=== PATIENT | female | born 1970 | race Caucasian/White ===

== ENCOUNTER 2020-06-06 08:37 | Outpatient (CLI) | payer OTHER, SELFPAY ==
--- NOTE | ~2020-06-06 | MM_ITS ---
EXAMINATION: MM screening wesley BI w keyla HISTORY: Screening mammogram TECHNIQUE: Craniocaudal and mediolateral oblique 3-D tomosynthesis images were obtained and synthetic 2-D images were generated. CAD analysis was submitted and interpreted. COMPARISON: 04/27/2019, 03/24/2018, 03/11/2017 bilateral digital screening mammogram examinations BREAST PARENCHYMAL COMPOSITION: There are scattered areas of fibroglandular density. FINDINGS: Occasional benign calcifications. There is no evidence of suspicious mass, calcification, o r architectural distortion to suggest malignancy in either breast. There has been no suspicious inter kiera change. IMPRESSION: 1. No mammographic evidence of malignancy. 2. Recommend routine screening mammography in one year. BI-RADS Category 2: Benign finding(s). Reviewed, dictated and finalized at location B. 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
== END 2020-06-06 08:38 | disposition home or self-care (01) ==
LOC: ANHIMG 08:40
PROVIDERS: PCP Registered Nurse; Visit Provider Registered Nurse
DX: Z12.31 Encounter for screening mammogram for malignant neoplasm of breast (principal)
CPT/HCPCS: 77063; 77067

== ENCOUNTER 2023-01-14 06:57 | Outpatient (CLI) | payer OTHER, SELFPAY ==
--- NOTE | ~2023-01-14 | MM_ITS ---
EXAMINATION: MM screening wesley BI w keyla HISTORY: Screening mammogram TECHNIQUE: Craniocaudal and mediolateral oblique 3-D tomosynthesis images were obtained and synthetic 2-D images were generated. CAD analysis was submitted and interpreted. COMPARISON: 06/06/2020, 04/27/2019, 03/24/2018 bilateral screening mammogram examinations BREAST PARENCHYMAL COMPOSITION: There are scattered areas of fibroglandular density. FINDINGS: Occasional benign calcifications. There is no evidence of suspicious mass, calcification, o r architectural distortion to suggest malignancy in either breast. There has been no suspicious inter kiera change. IMPRESSION: 1. No mammographic evidence of malignancy. 2. Recommend routine screening mammography in one year. BI-RADS Category 2: Benign finding(s). Reviewed, dictated and finalized at location A.
== END 2023-01-14 06:58 | disposition home or self-care (01) ==
LOC: ANHIMG 06:59
PROVIDERS: PCP Nurse Practitioner Family; Visit Provider Nurse Practitioner Family
DX: Z12.31 Encounter for screening mammogram for malignant neoplasm of breast (principal)
CPT/HCPCS: 77063; 77067

== ENCOUNTER 2023-02-05 09:58 | Emergency (ER) | payer OTHER, SELFPAY ==
[2023-02-05 10:10] VITALS: BP 140/83; PULSE 87; RESP 16; TEMP 36.4; O2SAT 99
--- NOTE | 2023-02-05 10:10 | ED.SKABFB ---
HPI - Skin/Abscess/Foreign Bdy General Chief complaint: Skin/Abscess/Foreign Body Stated complaint: irritation right arm Time Seen by Provider: 02/05/23 09:58 Source: patient Mode of arrival: ambulatory Limitations: no limitations History of Present Illness HPI narrative: Patient is a 52-year-old female who presents with right upper arm skin redness and swelling. Does report mild itching. States this started Monday. 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 Patient has been using Vaseline to prevent itching. Denies any numbness, tingling, weakness to arm. Denies any fever, chills, nausea, vomiting, diarrhea. Related Data Home Medications Medication Instructions Recorded Confirmed cyclobenzaprine 10 mg tablet 10 mg PO TID 07/04/19 lorcaserin 10 mg tablet (Belviq) 10 mg PO BID 07/04/19 cetirizine 5 mg-pseudoephedrine ER tablet PO 02/05/23 120 mg tablet,extended release,12hr (Zyrtec-D) Allergies Allergy/AdvReac Type Severity Reaction Status Date / Time No Known Allergies Allergy Unverified 02/05/23 10:04 Review of Systems Review of Systems: All systems reviewed & are unremarkable except as noted in HPI and below Constitutional: Constitutional: Denies body ache(s), Denies chills, Denies fatigue, Denies fever(s), Denies headache(s), Denies malaise and Denies weakness Eyes: Eyes: Denies blurry vision, Denies irritation and Denies loss of vision ENT: Denies otalgia, Denies headache(s), Denies nasal discharge, Denies sinus pain and Denies sore throat Cardiovascular: Cardiovascular: Denies chest pain, Denies irregular heart rhythm and Denies dyspnea Respiratory: Respiratory: Denies dyspnea Gastrointestinal: Gastrointestinal: Denies abdominal pain, Denies melena, Denies hematochezia, Denies diarrhea, Denies nausea and Denies vomiting Musculoskeletal: Musculoskeletal: Denies back pain, Denies myalgias and Denies arthralgias Integumentary/Breasts: Skin/Breast: Denies pruritus, Denies rash, Reports skin pain and Reports skin swelling Neurologic: Denies headache(s), Denies loss of vision and Denies weakness Psychiatric: Psychiatric: Reports no additional psychiatric complaints Endocrine: Endocrine: Denies fatigue PMFSH Past Medical History Medical History (Updated 02/05/23 @ 10:22 by Hemalatha Lennon, ASSOCIATE MEDIA DIRECTOR) BMI 38.0-38.9,adult Colon cancer screening Encounter for preventive health examination GERD (gastroesophageal reflux disease) Hyperlipidemia Hypothyroidism (acquired) Neck fullness On assisted drug therapy Recurrent cold sores Vitamin D deficiency Family History Family History (Updated 02/19/16 @ 23:19 by DOCTOR UNKNOWN) Mother Hypertension Family history of diabetes mellitus in first degree relative Acute myocardial infarction Social History Social History Smoking status: Never smoker Alcohol intake: current Comments At time of signature, agree with nursing past medical, surgical, social and family history. There is no relevant family history pertinent to the presenting complaint. Exam Const: General: cooperative, healthy appearing, comfortable, no acute distress and well nourished Nutritional Appearance: well nourished Orientation/consciousness: patient oriented x3 Limitations: no limitations HENMT: Head: normal to inspection, normocephalic and atraumatic Ears: hearing grossly normal bilaterally and external ears normal Face/Nose/Sinus: Normal external nose present, normal facial exam and face symmetric Face and sinus: normal facial exam and face symmetric Mouth: Yes lip normal Eyes: General: appearance normal, both eyes and all related structures Alignment and Position: alignment normal and position normal Periorbital: periorbital findings normal Eyelids: eyelids normal Pupils: Equal, round and reactive pupils present EOM: EOMs intact bilaterally Neck: Neck: normal visual inspection, full ROM and supple Chest: Chest palpation & insp
== END 2023-02-05 10:25 | disposition home or self-care (01) ==
PROVIDERS: Emergency Provider Nurse Practitioner Family; PCP Nurse Practitioner Family
DX: L03.113 Cellulitis of right upper limb (principal); K21.9 Gastro-esophageal reflux disease without esophagitis; E78.5 Hyperlipidemia, unspecified; E03.9 Hypothyroidism, unspecified
CPT/HCPCS: 99213; G0463

== ENCOUNTER 2024-12-21 09:05 | Outpatient (CLI) | payer BC, SELFPAY ==
--- NOTE | ~2024-12-21 | MM_ITS ---
EXAMINATION: MM screening wesley BI w keyla HISTORY: Screening TECHNIQUE: Craniocaudal and mediolateral oblique 3-D tomosynthesis images were obtained and synthetic 2-D images were generated. CAD analysis was submitted and interpreted. COMPARISON: Comparison to multiple prior studies sequentially, with oldest reviewed study dated 12/2015. BREAST PARENCHYMAL COMPOSITION: Not dense: There are scattered areas of fibroglandular density. FINDINGS: There is no evidence of suspicious mass, calcification, or architectural distortion to sugg est malignancy in either breast. There has been no suspicious interval change. IMPRESSION: 1. No mammographic evidence of malignancy. 2. Recommend routine screening mammography in one year. BI-RADS Category 1: Negative Reviewed, dictated and finalized at location A.
--- OUTSIDE RECORDS SUMMARY | 2024-12-21 09:07 | XMS_ITS | Clinical Summary ---
Author Organization [facility] [address] [facility] Address [address] [place] [address] Care Team Providers Care Silver Miner Name Role Phone Shobha Hunt NP Primary Care Provider [phone] Allergies No known active allergies Medications citalopram (CeleXA) 20 mg tabletIndications:A nxiety Take 1 tablet (20 mg total) by mouth daily 90 tablet 1 5 Active levothyroxine (SYNTHROID) 50 mcg tabletIndications:A cquired hypothyroidism Take 1 tablet (50 mcg total) by mouth daily 90 tablet 1 5 Active omeprazole (PriLOSEC) 40 mg capsuleIndications: Abdominal pain Take 1 capsule (40 mg total) by mouth daily 90 capsule 1 5 Active simvastatin (ZOCOR) 40 mg tabletIndications:M ixed hyperlipidemia Take 1 tablet (40 mg total) by mouth daily 90 tablet 1 5 Active valACYclovir (VALTREX) 500 mg tablet Take 1 tablet (500 mg total) by mouth 2 (two) times a day 60 tablet 5 Active ZyrTEC-D 5-120 mg per 12 hr tabletIndications:S easonal allergies Take 1 tablet by mouth 2 (two) times a day 48 tablet 3 5 Active Active Problems Problem Noted Date Diagnosed Date Obesity, morbid, BMI 40.0-49.9 05/26/2023 Assessment & Plan (08/05/2024 2:41 PM AUTOGRAPHER): Discussed the patient's BMI. The BMI is above average. BMI management plan is completed. BMI Follow-up includes: nutrition counseling, exercise counseling and education provided. Assessment & Plan (01/24/2024 1:53 PM CDT): Discussed the patient's BMI. The BMI is above average. BMI management plan is completed. BMI Follow-up includes: nutrition counseling, exercise counseling and education provided. Discussed the patient's BMI. The BMI is above average. BMI management plan is completed. BMI Follow-up includes: nutrition counseling, exercise counseling and education provided. Assessment & Plan (05/26/2023 3:23 PM CDT): Discussed the patient's BMI. The BMI is above average. BMI management plan is completed. BMI Follow-up includes: nutrition counseling, exercise counseling and education provided. Cervical cancer screening 05/26/2023 Abdominal pain 01/09/2023 Obesity (BMI 30-39.9) 11/23/2022 Seasonal allergies 11/23/2022 Non-seasonal allergic rhinitis due to pollen Assessment & Plan (02/14/2022 8:06 PM CDT): Stable, continue meds the same at this time Screening for diabetes mellitus 01/17/2022 Hyperlipidemia 01/17/2022 Assessment & Plan (01/17/2022 6:54 PM CDT): Fasting labs entered, will notify patient of results as available Advised patient to follow a heart healthy diet, low in red meat and pork, and increase veggies. Advised exercise 4x/week for 30min each session. Acquired hypothyroidism 04/15/2020 Assessment & Plan (02/14/2022 8:05 PM CDT): Stable, continue meds the same at this time Assessment & Plan (01/17/2022 6:54 PM CDT): Continue synthroid same dosing at this time Will evaluate further with labs, will notify pt of results as available Anxiety 04/15/2020 Depression 04/15/2020 Assessment & Plan (01/17/2022 6:55 PM CDT): Stable, continue meds same at this time. Advised not stopping it abruptly. She declines counseling at this time. 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 BMI follow-up includes: Nutrition Counseling and education provided Assessment & Plan (03/14/2022 7:06 PM CDT): Congratulated on weight loss, encouraged her to continue with endeavors. Will increase topamax to 50mg bid. Reminded her not to stop this abruptly and to call if finding she wants to go off of it. Encouraged increased exercise and cutting back on portion sizes/calories. Assessment & Plan (02/14/2022 8:06 PM CDT): Discussed meciation options, including saxenda. Will continue to attempt saxenda coverage, however as this is anticipated to take a while will start topamax off label for appetie suppression. We discussed that it could make soda taste metallic. She was also advised of potential serotonin syndrome with taking it. She reports understanding and desires to proceed. Will initiate 25mg bid with anticipation at increasing at 30d pending improvement in weight. Encouraged heart healthy diet and exercise 4x/week for 30min each session in addition to topamax. Assessment & Plan (01/17/2022 6:55 PM CDT): Discussed the patient's BMI. The BMI is above average. BMI management plan is completed. BMI Follow-up includes: nutrition counseling, exercise counseling and education provided. Letter written for karthikeyan, given to patient. Discussed starting lose dose and increasing week to week pending response. Immunizations Immunization Administration Dates Next Due Influenza, Unspecified 08/05/2024(Deferr ed: Patient Refused),07/24/2023(Deferred: Patient Refused),07/24/2023(Deferred: Patient Refused),05/26/2023(Deferred: Patient Refused),01/09/2023(Deferred: Patient Refused),11/23/2022(Deferred: Patient Refused),07/24/2022(Deferred: Patient Refused),08/24/2021(Deferred: Patient Refused),08/24/2021(Deferred: Patient Refused) Tdap 04/15/2020 Medical History Medical History Date Comments GERD (gastroesophageal reflux disease) Hypothyroidism Urinary tract infection Depression Hyperlipidemia Motion sickness Family History Medical History Relation Name Comments Penile cancer Father Diabetes Mother Breast cancer Sister 1 htn Sister 2 Relation Name Status Comments Father Mother Sister 1 Sister 2 Alive Social History Tobacco Use Types Packs/Day Years Used Date Smoking Tobacco: Never Smokeless Tobacco: Never AUDIT-C Answer Date Recorded Q1: How often do you have a drink containing alcohol? Monthly or less 03/08/2023 Q2: How many drinks containi ng alcohol do you have on a typical day when you are drinking? Patient does not drink Q3: How often do you have si x or more drinks on one occasion? Never 03/08/2023 PHQ-2 Answer Date Recorded PHQ-2 Total Score (If total score is 3 or more points, staff should administer the PHQ-9) 0 08/05/2024 Personal Safety Answer Date Recorded Have you ever been in or are you currently in a harmful physical or emotional relationship or is someone making you feel afraid or unsafe? Denies 03/08/2023 Comments Unknown Sex and Gender Information Value Date Recorded Sex Assigned at Not on file Legal Sex Female 12:04 AM AUTOGRAPHER Gender Identity Not on file Sexual Orientation Not on file Obstetrics History Last Filed Vital Signs Vital Sign Reading Time Taken Comments Blood Pressure 124/70 08/05/2024 2:38 PM AUTOGRAPHER Pulse 98 08/05/2024 2:38 PM AUTOGRAPHER Temperature 36.1 C (97 F) 08/05/2024 2:38 PM AUTOGRAPHER Respiratory Rate 25 03/08/2023 8:45 AM CDT Oxygen Saturation 97% 08/05/2024 2:38 PM AUTOGRAPHER Inhaled Oxygen Concentration - - Weight 106.1 kg (234 lb) 08/05/2024 2:38 PM AUTOGRAPHER Height 160 cm (5' 3) 08/05/2024 2:38 PM AUTOGRAPHER Body Mass Index 41.45 08/05/2024 2:38 PM AUTOGRAPHER Plan of Treatment Health Maintenance Due Date Last Done Comments Hepatitis C Screening 1970 Hepatitis B Screening 1989 Zoster Vaccine (1 of 2) 2021 Breast Cancer Screening-Mammogram 01/15/2024 01/14/2023 Covid-19 Vaccine ( season) 2024 01/23/2021, 01/01/2021 Cervical Cancer Screening 05/26/2024 05/26/2023, 03/2021 Influenza Vaccine (Season Ended) 2025 Depression Screening 08/05/2025 08/05/2024, 01/24/2024, 05/26/2023, Additional history exists Regular Well Visit/Exam 18-64 08/05/2025 08/05/2024, 05/26/2023, 11/23/2022 DTaP/Tdap/Td Vaccine (2 - Td or Tdap) 04/15/2030 04/15/2020 Colon Cancer Screening-Colonoscopy 03/08/2033 03/08/2023 Pneumococcal vaccine <65 Aged Out No longer eligible based on patient's age to complete this topic Procedures Procedure Name Priority Date/Time Associated Diagnosis Comments PAP AND HPV, REFLEX TO HPV GENOTYPES Routine 05/26/2023 3:56 PM CDT Cervical cancer screening COLONOSCOPY 03/08/2023 7:59 AM CDT SCREENING MAMMOGRAM BILATERAL W PREET Schedule Routine, Read Routine (OP Routine) 01/14/2023 Encounter for screening mammogram for malignant neoplasm of breast from Last 3 Months or Most Recently Relevant to Health Maintenance Results * Pap and HPV, reflex to HPV Genotypes (05/26/2023 3:56 PM CDT) CLINICAL INFORMATION: [facility] Comment:Postmenopausal LMP [facility] Comment:COURTNEY Previous Pap [facility] Comment:PREV NEG Prev. Bx [facility] Comment:None given SOURCE: [facility] Comment:Cervix, Endocervix Pap, specimen adequacy [facility] Comment: Satisfactory for evaluation. Endocervical/transformation zone component present. HPV interp [facility] Comment: Cytology Results: Negative for intraepithelial lesion or malignancy. [employer] [facility] Comment: MMD, CT(ASCP) CT Screening Location: [place] [address] Comment [facility] Comment: EXPLANATORY NOTE: The Pap is a screening test for cervical cancer. It is not a diagnostic test and is subject to false negative and false positive results. It is most reliable when a satisfactory sample, regularly obtained, is submitted with relevant clinical findings and history, and when the Pap result is evaluated along with historic and current clinical information. EFFECTIVE JUNE 19, 2023, the version of ThinPrep you ordered, commonly known as manual ThinPrep, will be DISCONTINUED. An alternative form of ThinPrep, called ThinPrep Imaging, will continue to be available. For a copy of the client communication (TIS Client Letter) showing TIS test codes, see [email or web address], and navigate to Well[facility]>Physician Materials>TIS Client Letter. You can also call for test code assistance. Human papillomavirus DNA, High Risk E6/E7 Not Detected NOT DETECTED [facility] [place] Comment: Not Detected High Risk HPV types (16,18,31,33,35,39,45,51,52, 56,58,59,66,68) were not detected. Other HPV types which cause anogenital lesions may be present. The significance of the other types of HPV in malignant processes has not been established. Methodology: Real Time PCR Thin prep 05/26/2023 3:56 PM CDT 05/27/2023 5:15 AM CDT us Shobha Hunt OPTOELECTRONIC TECHNICIAN LAB CYTOLOGY ORDERABLES Final Result [facility] [address] [place] [address] [facility] [address] [place] [address] * COLONOSCOPY (03/08/2023 7:59 AM CDT) Anatomical Region Laterality Modality Other Narrative Procedure Note Woodrow Gregory MD - 03/08/2023 7:59 AM CDT [facility] GI ENDOSCOPY Patient Name: Patito Allison Procedure Date: 03/08/2023 7:59 AM Date of : 1970 Admit Type: Outpatient Age: 52 Gender: Female Attending MD: Woodrow Gregory M.D. Room: [facility] ENDOSCOPY ROOM 06 Note Status: Finalized Procedure: Colonoscopy Indications: Screening for colorectal malignant neoplasm Referring MD: Providers: Woodrow Gregory M.D. Medicines: Monitored Anesthesia Care Complications: No immediate complications. Estimated Blood Loss: Estimated blood loss: none. Procedure: The benefits, risks and alternatives of theprocedure and sedation were discussed and informed consentwas obtained. All questions were answered. Please referto the signed informed consent document in the medical record. The scope was passed under direct vision.The [id number]-[id number] colonoscope was introduced through theanus and advanced to the cecum, identified byappendiceal orifice and ileocecal valve. The colonoscopy was performed without difficulty. The patient tolerated the procedure well. The quality of the bowel preparation was good. Scope withdrawal time was 9 minutes. Prep was administered in a split dose. Findings: The perianal and digital rectal examinations were normal. Two polyps were found in the sigmoid colon. The polyps werediminutive in size. These polyps were removed with a cold biopsy forceps.Resection and retrieval were complete. Non-bleeding internal hemorrhoids were found during retroflexion. The hemorrhoids were small. The exam was otherwise without abnormality. Impression: - Two diminutive polyps in the sigmoid colon,removed with a cold biopsy forceps. Resected andretrieved. - Non-bleeding internal hemorrhoids. - The examination was otherwise normal. Recommendation: - Patient has a contact number available for emergencies. The signs and symptoms of potential delayed complications were discussed with thepatient. Return to normal activities tomorrow. Written discharge instructions were provided to thepatient. - High fiber diet. - Continue present medications. - Await pathology results. - Repeat colonoscopy in 5 years for surveillance if polyps are adenomatous, otherwise 10 years. Woodrow Gregory M.D. Woodrow Gregory M.D. 03/08/2023 8:18:52 AM . Number of Addenda: 0 Note Initiated On: 03/08/2023 7:59 AM Recognized by the [employer] [place] [employer] for promoting quality in endoscopy us Woodrow Gregory MD ENDOSCOPY PROCEDURES Final Resul t * Screening Mammogram Bilateral W Preet (01/14/2023) Anatomical Region Laterality Modality Breast Bilateral Mammography Shobha Hunt NP IMG MAMMO PROCEDURES Final Re sult from Last 3 Months or Most Recently Relevant to Health Maintenance Insurance [facility] H[facility]/PPO Address: [address] [address] [place] [address] [employer] [facility] HMO/PPO Address: [facility] [address] [id number] Care Teams Silver Miner Relationship Specialty Start Date End Date Shobha Hunt NP [facility] [address] PCP - General Internal Medicine 11/24/22
--- OUTSIDE RECORDS SUMMARY | 2024-12-21 09:07 | XMS_ITS | Referral Summary ---
Author Organization [facility] [place] [address] [facility] Address [address] [place] [address] Care Team Providers Care Helium Arc Welder Name Role Phone Shobha Hunt NP Primary Care Provider [phone] Allergies No known active allergies Medications citalopram [...] 05/26/2023 Assessment & Plan (08/05/2024 2:41 PM FLOOR PRESS OPERATOR): Discussed the patient's BMI. The BMI is [...] Refused),08/24/2021(Deferred: Patient Refused),08/24/2021(Deferred: Patient Refused) Tdap 04/15/2020 Social History Tobacco Use Types Packs/Day Years [...] on file Legal Sex Female 12:04 AM FLOOR PRESS OPERATOR Gender Identity Not on file Sexual Orientation Not on file Last Filed Vital Signs Vital Sign Reading Time Taken Comments Blood Pressure 124/70 08/05/2024 2:38 PM FLOOR PRESS OPERATOR Pulse 98 08/05/2024 2:38 PM FLOOR PRESS OPERATOR Temperature 36.1 C (97 F) 08/05/2024 2:38 PM FLOOR PRESS OPERATOR Respiratory Rate 25 03/08/2023 8:45 AM CDT Oxygen Saturation 97% 08/05/2024 2:38 PM FLOOR PRESS OPERATOR Inhaled Oxygen Concentration - - Weight 106.1 kg (234 lb) 08/05/2024 2:38 PM FLOOR PRESS OPERATOR Height 160 cm (5' 3) 08/05/2024 2:38 PM FLOOR PRESS OPERATOR Body Mass Index 41.45 08/05/2024 2:38 PM FLOOR PRESS OPERATOR Plan of Treatment Not on file Procedures Procedure Name Priority Date/Time Associated Diagnosis [...] Genotypes (05/26/2023 3:56 PM CDT) CLINICAL INFORMATION: [facility] Comment:Postmenopausal LMP [facility] Comment:COURTNEY Previous Pap [facility] Comment:PREV NEG Prev. Bx [facility] Comment:None given SOURCE: [facility] Comment:Cervix, Endocervix Pap, specimen adequacy [facility] Comment: Satisfactory for evaluation. Endocervical/transformation zone component present. HPV interp [facility] Comment: Cytology Results: Negative for intraepithelial lesion or malignancy. Director Process Improvement [facility] Comment: MMD, CT(ASCP) CT Screening Location: [address], [place] [address] Comment [facility] Comment: EXPLANATORY NOTE: The Pap is [...] Client Letter) showing TIS test codes, see www.[employer]/Resources, and navigate to Well-Woman>Physician Materials>TIS Client Letter. You can also call for test code assistance. Human papillomavirus DNA, High Risk E6/E7 Not Detected NOT DETECTED [employer] [facility] Comment: Not Detected High Risk HPV types (16,18,31,33,35,39,45,51,52, 56,58,59,66,68) were not detected. Other HPV types which cause anogenital lesions may be present. The significance of the other types of HPV in malignant processes has not been established. Methodology: Real Time PCR Thin prep 05/26/2023 3:56 PM CDT 05/27/2023 5:15 AM CDT Shobha Hunt NP LAB CYTOLOGY ORDERABLES Final Result [facility] [address] [place] [address] [employer] [address] [place] [address] * COLONOSCOPY (03/08/2023 7:59 AM CDT) Anatomical Region Laterality Modality Other Narrative Procedure Note Woodrow Gregory MD - 03/08/2023 7:59 AM CDT [facility] GI ENDOSCOPY Patient Name: Patito Allison Procedure Date: 03/08/2023 7:59 AM Date of : 1970 Admit Type: Outpatient Age: 52 Gender: Female Attending MD: Woodrow Gregory M.D. Room: [facility] ENDOSCOPY ROOM 06 Note Status: Finalized [...] The scope was passed under direct vision.The [id number]-[id number] colonoscope was introduced through theanus and advanced [...] On: 03/08/2023 7:59 AM Recognized by the [place] [employer] for promoting quality in endoscopy Woodrow Gregory MD ENDOSCOPY PROCEDURES Final Resul t * Screening Mammogram Bilateral W Preet (01/14/2023) Anatomical Region Laterality Modality Breast Bilateral Mammography Shobha Hunt MOVEMENT THERAPIST IMG MAMMO PROCEDURES Final Re sult from Last 3 Months or Most Recently Relevant to Health Maintenance Insurance CHOICE PLUS ANTHEM ACCESS CHOICE [facility] CHOICE PLUS Care Teams Helium Arc Welder Relationship Specialty Start Date End Date Shobha Hunt NP [address] [place] [address] PCP - General Internal Medicine 11/24/22
== END 2024-12-21 09:06 | disposition home or self-care (01) ==
PROVIDERS: PCP Nurse Practitioner Family; Visit Provider Nurse Practitioner Family
DX: Z12.31 Encounter for screening mammogram for malignant neoplasm of breast (principal)
CPT/HCPCS: 77063; 77067

== ENCOUNTER 2025-04-30 02:32 | Day surgery (SDC) | payer OTHER, SELFPAY ==
[2025-04-24 13:16] VITALS: BMI 41.5
--- NOTE | 2025-04-24 13:17 | SUR.PREOP ---
[facility] has started construction of its new state of the art ER which will open Spring 2026. With this, we anticipate parking may be a challenge for some our surgical patients and families. Parking spaces are limited but are available for all Surgical, obstetrics, and ER patients sharing this lot. If you arrive and find you are having a hard time finding a parking space, please note that we understand the challenges, please drive around the hospital and park near Hospital Entrance 1. When you enter this entrance, you can ask a volunteer to direct or take you back to the surgical waiting area to check in. We appreciate everyone?s understanding of these expected challenges while we build for your future. Report to the Outpatient Waiting Room, entrance under the green pavilion located off [address], at time 0830 on date 04/30/25. Planned Procedure Time: 1030.? Time changes happen often and if your time is changed the preop area will call you the afternoon before. - You and your visitor will be asked to self-screen and do not enter if you have any COVID symptoms. Please call surgeon if you need to reschedule. - A mask is optional within the hospital at this time. No food or drink from midnight until time of surgery and no smoking, or chewing tobacco (or any form of nicotine). No chewing gum, candy or mints. Take only the following medications with a SIP of water on the morning of surgery: acyclovir, citalopram, cyclobenzaprine, levothyroxine. DO NOT STOP ANY OF YOUR OTHER PRESCRIPTION MEDICATIONS PRIOR TO SURGERY EXCEPT THE FOLLOWING Hold all vitamins and supplements for 3 days per anesthesiologist. Medications to discontinue per physician none Date to take last dose 04/26/25 Please no make-up, nail vincentian, hairspray, perfume, deodorant, or body powder the day of surgery.? No jewelry (including any body piercings) or valuables the day of surgery, leave them at home.? Please take a shower or bath the night before, or the morning of, surgery with an antibacterial soap.? Wear comfortable, loose fitting clothing.? Children are encouraged to wear pajamas. - Jewelry must be removed prior to entering the operating room.? Rings and piercings that are not removed may be cut off. - The hospital will not accept responsibility for valuables.? - Please leave all valuables, including medications, at home the day of surgery. If you are going home after surgery, a licensed pizza delivery driver must drive you home.? - NO public transportation without another adult if you receive anesthesia. - We recommend that an adult stay with you for 24 hours following discharge. - We also recommend that you do not drive, make important decision, drink alcoholic beverages, or take any drugs that were not prescribed by your health care provider for at least 24 hours after your discharge time. Follow any additional instructions given to you from your surgeon. Telephone instructions given to __Dona and asked if any additional questions and then verbalized understanding. Patient advised to call surgeon office or pre surgery nurse liaison [phone] if any additional questions.
--- OUTSIDE RECORDS SUMMARY | 2025-04-30 02:35 | XMS_ITS | Clinical Summary ---
Author Organization [facility] [place] [address] [facility] Address [address] [place] [address] Care Team Providers Care Overedge Machine Operator Name Role Phone Shobha Hunt NP Primary Care Provider [phone] Allergies No known active allergies Medications ZyrTEC-D 5-120 mg per 12 hr tabletIndications:S easonal allergies Take 1 tablet by mouth 2 (two) times a day 48 tablet 3 5 Active valACYclovir (VALTREX) 500 mg tablet Take 1 tablet (500 mg total) by mouth 2 (two) times a day 60 tablet 5 5 Active simvastatin (ZOCOR) 40 mg tabletIndications:M ixed hyperlipidemia Take 1 tablet (40 mg total) by mouth daily 90 tablet 1 5 Active omeprazole (PriLOSEC) 40 mg capsuleIndications: Abdominal pain Take 1 capsule (40 mg total) by mouth daily 90 capsule 1 5 Active levothyroxine (SYNTHROID) 50 mcg tabletIndications:A cquired hypothyroidism Take 1 tablet (50 mcg total) by mouth daily 90 tablet 1 5 Active citalopram (CeleXA) 20 mg tabletIndications:A nxiety Take 1 tablet (20 mg total) by mouth daily 90 tablet 1 5 Active Active Problems Problem Noted Date Diagnosed Date BMI 40.0-44.9, adult 05/26/2023 Assessment & Plan (08/05/2024 2:41 PM COAL CARRIER): Discussed the patient's BMI. The BMI is [...] session. Acquired hypothyroidism 04/15/2020 Assessment & Plan (01/28/2025 3:50 PM CDT): Discussed the patient's BMI. The BMI is above average. BMI management plan is completed. BMI Follow-up includes: nutrition counseling, exercise counseling and education provided. Assessment & Plan (02/14/2022 8:05 PM CDT): [...] and increasing week to week pending response. Encounters Date Type Department Care Team Description 01/28/2025 4:00 PM CDT Office Visit [facility] Family [facility] [address] [address] Shobha Hunt NP Mixed hyperlipidemia (Primary Dx); BMI 40.0-44.9, adult (HCC); Obesity, morbid, BMI 40.0-49.9 (HCC); Seasonal allergies; Abdominal pain; Acquired hypothyroidism; Anxiety; Screening for diabetes mellitus from Last 3 Months Immunizations Immunization Administration Dates Next Due Influenza, Unspecified 08/05/2024(Deferr ed: Patient Refused),07/24/2024(Deferred: Patient Refused),07/24/2023(Deferred: Patient Refused),07/24/2023(Deferred: Patient Refused),07/24/2023(Deferred: Patient Refused),05/26/2023(Deferred: Patient [...] often do you have a drink containing alc ohol? Monthly or less 01/28/2025 Q2: How many drinks containi ng alcohol do you have on a typical day when you are drinking? 1 or 2 01/28/2025 Q3: How often do you have si x or more drinks on one occasion? Never 01/28/2025 PHQ-2 Answer Date Recorded PHQ-2 Total Score [...] on file Legal Sex Female 12:04 AM COAL CARRIER Gender Identity Not on file Sexual Orientation Not on file Obstetrics History Last Filed Vital Signs Vital Sign Reading Time Taken Comments Blood Pressure 122/80 01/28/2025 3:46 PM CDT Pulse 94 01/28/2025 3:46 PM CDT Temperature 36.7 C (98 F) 01/28/2025 3:46 PM CDT Respiratory Rate 25 03/08/2023 8:45 AM CDT Oxygen Saturation 96% 01/28/2025 3:46 PM CDT Inhaled Oxygen Concentration - - Weight 107.5 kg (237 lb) 01/28/2025 3:46 PM CDT Height 160 cm (5' 3) 01/28/2025 3:46 PM CDT Body Mass Index 41.98 01/28/2025 3:46 PM CDT Plan of Treatment Health Maintenance Due Date Last Done Comments Hepatitis C Screening 1970 Hepatitis B Screening 1989 Zoster Vaccine (1 of 2) 2021 Cervical Cancer Screening 05/26/2024 05/26/2023, 03/2021 Covid-19 Vaccine ( season) 2025 01/23/2021, 01/01/2021 Influenza Vaccine (#1) 2025 Depression Screening 08/05/2025 08/05/2024, 01/24/2024, 05/26/2023, Additional history exists Regular Well Visit/Exam 18-64 08/05/2025 08/05/2024, 05/26/2023, 11/23/2022 Breast Cancer Screening-Mammogram 12/24/2025 12/24/2024, 01/14/2023 DTaP/Tdap/Td Vaccine (2 - Td or Tdap) 04/15/2030 04/15/2020 Colon Cancer Screening-Colonoscopy 03/08/2033 03/08/2023 Pneumococcal vaccine <65 Aged Out No longer eligible based on patient's age to complete this topic Procedures Procedure Name Priority Date/Time Associated Diagnosis Comments SCREENING MAMMOGRAM BILATERAL W PREET Schedule Routine, Read Routine (OP Routine) 12/24/2024 10:54 AM CDT Breast cancer screening by mammogram PAP AND HPV, REFLEX TO HPV GENOTYPES Routine 05/26/2023 3:56 PM CDT Cervical cancer screening COLONOSCOPY 03/08/2023 7:59 AM CDT from Last 3 Months or Most Recently Relevant to Health Maintenance Results * Screening Mammogram Bilateral W Preet (12/24/2024 10:54 AM CDT) Anatomical Region Laterality Modality Breast Bilateral Mammography Shobha Hunt BUILDING OPERATOR IMG MAMMO PROCEDURES Final Re sult * Pap and HPV, reflex to HPV Genotypes (05/26/2023 3:56 PM CDT) CLINICAL INFORMATION: [facility] Comment:Postmenopausal LMP [facility] Comment:COURTNEY Previous Pap [facility] Comment:PREV NEG Prev. Bx [facility] Comment:None given SOURCE: [facility] Comment:Cervix, Endocervix Pap, specimen adequacy [facility] Comment: Satisfactory for evaluation. Endocervical/transformation zone component present. HPV interp [facility] Comment: Cytology Results: Negative for intraepithelial lesion or malignancy. 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 You can also call for test code assistance. Human papillomavirus DNA, High Risk E6/E7 Not Detected NOT DETECTED [employer] [facility] [place] Comment: Not Detected High Risk HPV types (16,18,31,33,35,39,45,51,52, 56,58,59,66,68) were not detected. Other HPV types which cause anogenital lesions may be present. The significance of the other types of HPV in malignant processes has not been established. Methodology: Real Time PCR Thin prep 05/26/2023 3:56 PM CDT 05/27/2023 5:15 AM CDT Shobha Hunt NP LAB CYTOLOGY ORDERABLES Final Result [facility] [address] [place] [address] [employer]/[place] [address] [address] [place] [address] * COLONOSCOPY (03/08/2023 7:59 AM CDT) Anatomical Region Laterality Modality Other Narrative Procedure Note Woodrow Gregory MD - 03/08/2023 7:59 AM CDT [facility] GI ENDOSCOPY Patient Name: Patito Allison Procedure Date: 03/08/2023 7:59 AM Date of : 1970 Admit Type: Outpatient Age: 52 Gender: Female Attending MD: Woodrow Gregory M.D. Room: [facility] ENDOSCOPY ROOM 06 Note Status: Finalized [...] The scope was passed under direct vision.The [id number]-[id number] colonoscope was introduced through theanus and advanced [...] On: 03/08/2023 7:59 AM Recognized by the [place] [employer] for promoting quality in endoscopy Woodrow Gregory MD ENDOSCOPY PROCEDURES Final Resul t from Last 3 Months or Most Recently Relevant to Health Maintenance Insurance [facility] CHOICE PLUS [facility] HMO/PPO Address: [facility] [address] [place] [address] [facility] ACCESS CHOICE [facility] CHOICE PLUS [facility] HMO/PPO Address: [address] [address] [place] [address] Care Teams Overedge Machine Operator Relationship Specialty Start Date End Date Shobha Hunt NP [address] [place] [address] PCP - General Internal Medicine 11/24/22
--- OUTSIDE RECORDS SUMMARY | 2025-04-30 02:35 | XMS_ITS | Encounter Summary ---
Author Organization [facility] Address [facility] [place] [address] Care Team Providers Care Legal Financial Specialist Name Role Phone Marilia Contreras Primary Care Provider [phone] Encounter Details Date Type Department Care Team (Latest Contact Info) Description 07/26/[address] [facility] Family & Internal Medicine [facility] [address] [place] [address] Marilia Contreras APNP [address] [place], [place] [phone] Prescription for a head cold Social History Tobacco Use Types Packs/Day Years Used Date Smoking Tobacco: Never Smokeless Tobacco: Never Alcohol Use Standard Drinks/Week Comments Yes 0 (1 standard drink = 0.6 oz pur e alcohol) 0.25 PHQ-2 Answer Date Recorded PHQ-2 Score - If the patient scores above 3, please move on to questions 3-9 1 04/15/2020 Comments No Sex and Gender Information Value Date Recorded Sex Assigned at Not on file Legal Sex Female 7:16 AM CDT Gender Identity Not on file Sexual Orientation Not on file documented as of this encounter Plan of Treatment Not on file documented as of this encounter Visit Diagnoses Not on filedocumented in this encounter Additional Health Concerns Assessment Noted Time PHQ-9 Depression Total Score: 7 04/15/20 20 8:40 AM CDT documented as of this encounter Care Teams Legal Financial Specialist Relationship Specialty Start Date End Date Marilia Contreras APNP [address] [place] [address] [phone] PCP - General NURSE PRACTITIONER 04/15/20 documented as of this encounter
--- OUTSIDE RECORDS SUMMARY | 2025-04-30 02:35 | XMS_ITS | Encounter Summary ---
Author Organization [facility] Address [facility] [place] [address] Care Team Providers Care International Logistics Manager Name Role Phone Marilia Contreras Primary Care Provider [phone] Encounter Details Date Type Department Care Team (Late st Contact Info) Description 10/06/2020 [employer] Message Enc [facility] Medical [facility] Family & Internal Medicine [facility] [address] [place] [address] Marilia Contreras APNP [address] [place] [address] RE: Medication Questions Social History Tobacco Use Types Packs/Day Years [...] on file documented as of this encounter Progress Notes * LUKE Magaña - 10/07/2020 4:20 PM CDT filled * Miriam Calvillo MA - 10/07/2020 7:18 AM CDTFrom: Patito Allison To: Marilia Contreras Sent: 10/06/2020 5:59 PM CDT Subject: Medication Questions Can I get a refill of my Citalopram 20mg and Zyrtec D ? I have an appointment on October 16 but I'll run out before then. Thank you documented in this encounter Plan of Treatment Not on file documented as of this encounter Visit Diagnoses Diagnosis Anxiety- Primary Anxiety state, unspecified Recurrent major depressive disorder, in partial remission Asthma due to seasonal allergies ([facility]) documented in this encounter Additional Health Concerns Assessment Noted Time PHQ-9 Depression Total Score: 7 04/15/20 20 8:40 AM CDT documented as of this encounter Care Teams International Logistics Manager Relationship Specialty Start Date End Date Marilia Contreras APNP [address] [place] [address] PCP - General NURSE PRACTITIONER 04/15/20 documented as of this encounter
--- OUTSIDE RECORDS SUMMARY | 2025-04-30 02:35 | XMS_ITS | Encounter Summary ---
Author Organization [facility] Address [facility] [place] [address] Care Team Providers Care Service Delivery Manager Name Role Phone Marilia Contreras Primary Care Provider [phone] Encounter Details Date Type Department Care Team (Late st Contact Info) Description 09/21/2020 [employer] Message Enc [facility] Family & Internal Medicine [facility] [address] [place] [address] Marilia Contreras APNP [address] [place], [place] [phone] RE: Medication Questions Social History Tobacco Use [...] documented as of this encounter Care Teams Service Delivery Manager Relationship Specialty Start Date End Date Marilia Contreras APNP [address] [place] [address] [phone] PCP - General NURSE PRACTITIONER 04/15/20 documented as of this encounter
--- OUTSIDE RECORDS SUMMARY | 2025-04-30 02:35 | XMS_ITS | Encounter Summary ---
Author Organization [facility] Address [facility] [place] [address] Care Team Providers Care Beef Cattle Specialist Name Role Phone Marilia Contreras Primary Care Provider [phone] Encounter Details Date Type Department Care Team (Late st Contact Info) Description 05/11/2020 [employer] Message Enc [facility] Family & Internal Medicine [facility] [address] [place] [address] Marilia Contreras APNP [address] [place] [address] RE: medications Social History Tobacco Use Types Packs/Day Years [...] on file Sexual Orientation Not on file COVID-19 Exposure Response Date Recorded In the last month, have you been in contact with someone who was confirmed or suspected to have Coronavirus / COVID-19? No / Unsure 04/15/2020 8:11 AM CDT documented as of this encounter Progress Notes * LUKE Magaña - 05/19/2020 12:44 PM CDT filled * LUKE Magaña - 05/12/2020 3:45 PM CDT I don't think she needs a prescription for this. Also---is this not in her med list and if not, why does she take it? * Florecita Chase RN - 05/12/2020 3:32 PM CDT Last OV- 04/15/20 Last Fill- 11/13/19 Does not look like we have filled the zyrtec-D. Ok to fill? * Florecita Chase RN - 05/12/2020 3:32 PM CDTFrom: Patito Allison To: Lobo Contreras Sent: 05/11/2020 6:48 PM CDT Subject: Other I need a refill for Zyrtec D please. Thank you. documented in this encounter Plan of Treatment Not on file documented as of this encounter Visit Diagnoses Diagnosis Asthma due to seasonal allergies ([facility])- Primary documented in this encounter Additional Health Concerns Assessment Noted Time PHQ-9 Depression Total Score: 7 04/15/20 20 8:40 AM CDT documented as of this encounter Care Teams Beef Cattle Specialist Relationship Specialty Start Date End Date Marilia Contreras APNP [address] [place] [id number] PCP - General NURSE PRACTITIONER 04/15/20 documented as of this encounter
--- OUTSIDE RECORDS SUMMARY | 2025-04-30 02:35 | XMS_ITS | Clinical Summary ---
Author Organization [facility] Address [address] [place] [address] Care Team Providers Care Exercise Equipment Repair Technician Name Role Phone Diane Marilia BUTLER Primary Care Provider [phone] Allergies Active Allergy Reactions Criticality Noted Date Comments Seasonal Eyes Water & Itch 10/16/2020 Medications valACYclovir 1 g tabletIndications:H SV-1 (herpes simplex virus 1) infection Take one tablet bid prn 21 tablet 1 1 Active levothyroxine (EUTHYROX) 88 MCG tabletIndications:A cquired hypothyroidism Take 1 tablet (88 mcg total) by mouth every morning. Patient must be seen for further refills 90 tablet 2 Active citalopram 20 MG tabletIndications:A nxiety,Recurrent major depressive disorder, in partial remission Take 1 tablet (20 mg total) by mouth daily. Patient must be seen for further refills 90 tablet 2 Active SIMVASTATIN 40 MG tabletIndications:M ixed hyperlipidemia Take 1 tablet by mouth once daily 90 tablet 2 Active ZYRTEC-D ALLERGY & CONGESTION 5-120 MG 12 hr tabletIndications:A sthma due to seasonal allergies ([facility]) Take 1 tablet by mouth twice daily 60 tablet 2 Active omeprazole 20 MG capsuleIndications: Gastroesophageal reflux disease, unspecified whether esophagitis present Take 1 capsule (20 mg total) by mouth daily. Patient is due for appt , no further refills until seen in office or for a virtual visit 30 capsule 2 Active Active Problems Problem Noted Date Diagnosed Date HSV-1 (herpes simplex virus 1) infection 020 Anxiety 04/15/2020 Depression 04/15/2020 Acquired hypothyroidism 04/15/2020 GERD (gastroesophageal reflux disease) 0 BMI 39.0-39.9,adult 04/15/2020 Immunizations Immunization Administration Dates Next Due Tdap (Historical Only-select from magnify glass) 04/15/2020 Family History Medical History Relation Comments penile cancer Father No Known Problems Maternal Grandfather Diabetes Maternal Grandmother Diabetes Maternal Uncle Diabetes Mother No Known Problems Paternal Aunt No Known Problems Paternal Grandfather No Known Problems Paternal Grandmother No Known Problems Paternal Uncle Breast Cancer Sister Relation Status Comments Father Maternal Grandfather Maternal Grandmother Maternal Uncle Mother Paternal Aunt Paternal Grandfather Paternal Grandmother Paternal Uncle Sister Alive Social History Tobacco Use Types Packs/Day [...] Sign Reading Time Taken Comments Blood Pressure 122/82 10/30/2020 1:30 PM CDT Pulse 89 10/30/2020 1:30 PM CDT Temperature 36.7 C (98 F) 10/30/2020 1:30 PM CDT Respiratory Rate 20 10/30/2020 1:30 PM CDT Oxygen Saturation 98% 10/30/2020 1:30 PM CDT Inhaled Oxygen Concentration - - Weight 100.7 kg (222 lb) 10/30/2020 1:30 PM CDT Height 157.5 cm (5' 2) 10/30/2020 1:30 PM CDT Body Mass Index 40.6 10/30/2020 1:30 PM CDT Plan of Treatment Health Maintenance Due Date Last Done Comments Colorectal Cancer Screening Colonoscopy (10 Years) 1971 Annual Physical 1974 Hepatitis C 1989 Hepatitis B Vaccines (1 of 3 - 19+ 3-dose series) 1990 Pneumococcal Vaccine: 50+ Years (1 of 1 - PCV) 2021 Zoster Vaccines (1 of 2) 2021 Mammogram Screening 06/06/2022 06/06/2020, 04/27/2019, 03/24/2018, Additional history exists Cervical Cancer Screening Pap Smear (Age 30 to 64) Every 3 Years 10/31/2023 10/30/2020 COVID-19 Vaccine ( - season) 2025 Influenza Adult (#1) 2025 Cervical Cancer Screening Pap with HPV Testing (Age 30 to 64) Every 5 Years 10/30/2025 10/30/2020 Cervical Cancer Screening with HPV 10/30/2025 DTaP, Tdap and Td Vaccines (2 - Td or Tdap) 04/15/2030 04/15/2020 Meningococcal B Vaccine Aged Out No l onger eligible based on patient's age to complete this topic Meningococcal Vaccine Aged Out No claudia sachin eligible based on patient's age to complete this topic RSV Immunizations Under 20 Months Aged Out No longer eligible based on patient's age to complete this topic Procedures Procedure Name Priority Date/Time Associated Diagnosis Comments HPV MRNA E6/E7 Routine 10/30/2020 2:08 PM CDT CYTOPATH CERV/VAG THIN LAYER Routine 10/30/2020 2:08 PM CDT Encounter for well woman exam MAMMOGRAM GENERIC (SCAN ORDER) 06/06/2020 from Last 3 Months or Most Recently Relevant to Health Maintenance Results * HPV MRNA E6/E7 (10/30/2020 2:08 PM CDT) HPV MRNA E6/E7 Not Detected Not Detected [employer] [place] Comment: Methodology: Core Manager-Mediated Amplification This assay detects E6/E7 viral messenger RNA (mRNA) from 14 high-risk HPV types (16,18,31,33,35,39,45,51,52,56,58,59,66,68). The analytical performance characteristics of this assay have been determined by [employer]. The modifications have not been cleared or approved by the FDA. This assay has been validated pursuant to the CLIA regulations and is used for clinical purposes. For additional information, please refer to http://education.Lean [employer] Machine/faq/HOJ348z2 (This link if provided for information/ educational purposes only.) 10/30/2020 2:08 PM CDT 10/31/2020 4:14 AM CDT Marilia BUTLER PATHOLOGY/CYTOLOGY ORDERABL ES Final Result Performing Organization Address [facility] Co de Phone Number Nulu - ELISE ORDERS [facility] [address] [facility] [place] [address] * Cytopath Cerv/Vag Thin Layer (10/30/2020 2:08 PM CDT) CLINICAL INFORMATION: Postmenopausal [facility] Clinical Information: May [facility] [employer] [facility] Date of Last Pap INFORMATION NOT PROVIDED [facility] Previous Biopsy? INFORMATION NOT PROVIDED [facility] SOURCE (QST) Cervix, Endocervix [facility] STATEMENT OF ADEQUACY: [facility] Comment: Satisfactory for evaluation. Endocervical/transformation zone component present. PAP INTERPRETATION/RESU LTS Negative for intraepithelial lesion or malignancy. [facility] ELECTRON BEAM WELDER SETTER [facility] Comment: DDS, CT(ASCP) CT screening location: [place] [address] [place] [address] COMMENT: [facility] Comment: EXPLANATORY NOTE: The Pap is a screening test for cervical cancer. It is not a diagnostic test and is subject to false negative and false positive results. It is most reliable when a satisfactory sample, regularly obtained, is submitted with relevant clinical findings and history, and when the Pap result is evaluated along with historic and current clinical information. 10/30/2020 2:08 PM CDT 10/31/2020 4:14 AM CDT us Marilia BUTLER PATHOLOGY/CYTOLOGY ORDERABL ES Final Result Performing Organization Address [facility]/ZIP Co de Phone Number Nulu - [facility] [address] [place] [address] * MAMMOGRAM GENERIC (06/06/2020) Anatomical Region Laterality Modality Other 06/06/2020 Narrative 06/06/2020 Ordered by an unspecified provider. us Documents Scanned SCANNING Final Result from Last 3 Months or Most Recently Relevant to Health Maintenance Insurance Care Teams Exercise Equipment Repair Technician Relationship Specialty Start Date End Date Marilia Contreras APNP [facility] [place] [place], [place] [id number] PCP - General NURSE PRACTITIONER 04/15/20
--- OUTSIDE RECORDS SUMMARY | 2025-04-30 02:35 | XMS_ITS | Encounter Summary ---
Author Organization [facility] Address [facility] [place] [address] Care Team Providers Care Hardware Developer Name Role Phone Marilia Contreras Primary Care Provider [phone] Encounter Details Date Type Department Care Team (Late st Contact Info) Description 12/10/2021 Civolutiont Message Enc [facility] Medical Group Family & Internal Medicine [facility] [address] [place] [address] Marilia Contreras APNP [address] [place] [address] Refill Social History Tobacco Use Types Packs/Day Years [...] documented as of this encounter Care Teams Hardware Developer Relationship Specialty Start Date End Date Marilia Contreras APNP [address] [place] [address] PCP - General NURSE PRACTITIONER 04/15/20 documented as of this encounter
--- NOTE | 2025-04-30 07:06 | P.OP_ITS ---
Procedure Note - Detailed Date of Procedure 04/30/25 Pre-op Diagnosis Christiano carpal tunnel synd. Post-op Diagnosis Same Procedure Performed left ectr Surgeon Jair Fajardo MD Side Puller kira sharpe pa-c Anesthesia MAC Description of Procedure INFORMED CONSENT: The patient was seen and examined and marked in the pre-op area.? The patient signed the consent form. PROCEDURE IN DETAIL:The patient taken back to OR on the stretcher in supine position. Time out performed with anesthesia, surgeon and staff agreeing on patient's name site and surgery to be performed SCDs were placed on the lower extremities and inflated. A tourniquet was placed on {left} upper extremity and antibiotics given IV After anesthesia administered sedation I injected {6}cc 1%lido with epi and 0.5% marcaine plain at the operative site The?{left upper extremity}?was prepped and draped in sterile fashion the??{left upper extremity} was? exsanguinated with Esmarch bandage and tourniquet inflated to 250mmHg I made a transverse incision in the {left} volar distal wrist crease through skin and dermis with 15 blade scalpel.? Littler scissors spread down to antebrachial fascia. A small incision was made in antebrachial fascia allowing access to Carpal tunnel. I proceeded with sequential dilation staying in line with the ring finger and hugging the hook of the hamate.? I then used the synovial elevator to free any adhesions from the underside of the transverse carpal ligament. Next I was able to insert the Microaire endoscopic carpal tunnel device with direct visualization of the transverse fibers on the monitor and proceeded with complete segmental retrograde release of the ligament in its entirety.? I irrigated with normal saline and closed with 4-0 monocryl for dermis and subcuticular closure. A dressing of Dermabond, 4x4, dejuan, and a volar splint was applied for patient safety, security, and comfort and secured with an nilda bandage after the tourniquet was let down noting the hand was warm and well perfused. The patient was then awaken from anesthesia and transferred to the recovery room in stable condition.? Complications - none EBL- 0cc Disposition - home in stable condition kira sharpe pa-c was essential for positioning, retraction, closure and dressing placement [facility] [place] Surgery - Charge Forward: Surgery Billing ([id number] same for kira adding )
--- NOTE | 2025-04-30 07:06 | WPDHPUPDATE1 ---
History and Physical Update Update Date/Time: 04/30/25 07:06 Patient seen and examined in pre-operative holding area. No interval change in medical history or symptoms. Patient recalls previous discussion of benefits and alternatives to procedure. Continues to desire to proceed with left endoscopic possible open carpal tunnel release . Reviewed procedure, post-op expectations and risks including but not limited to bleeding, infection, injury to tendon/nerve/vessel, decreased hand function, stiffness, RSD, no change or worsening of symptoms. I discussed the possible use of assistants and their participation in the case. Patient stated understanding and signed the consent form wishing to proceed.
[2025-04-30] MEDS: ACETAMINOPHEN 500 MG TABLET 1000 MG PO (10:00)
[2025-04-30 10:35] VITALS: BP 125/71; PULSE 74; TEMP 36.4; O2SAT 99; BMI 41.6
[2025-04-30] MEDS: LACTATED RINGERS 1,000 ML 30 ML IV CONT (10:49)
--- NOTE | 2025-04-30 11:33 | WPDANESEPPF ---
Anes - Initial Pre Proc Eval Procedure: Operation Date: 04/30/25 11:30 Proposed Procedures p Right Endoscopic Carpal Tunnel Release, Possible Open - Jair Fajardo MD Date/Time: 04/30/25 11:33 Surgeon: Jair Fajardo MD Pre Op Diagnosis: Christiano carpal tunnel synd. Patient Data Age: 55 Gender: F Height: 1.57 m Weight: 103.3 kg Last Vital Signs Temp 36.4 C L 04/30/25 10:35 Pulse 74 04/30/25 10:35 BP 125/71 04/30/25 10:35 Pulse Ox 99 04/30/25 10:35 O2 Del Method Room Air 04/30/25 10:35 Allergies Allergy/AdvReac Type Severity Reaction Status Date / Time No Known Allergies Allergy Verified 04/30/25 10:33 Home Medications ?Medication ?Instructions ?Recorded ?Confirmed ?Type omeprazole 20 mg capsule,delayed 20 mg PO DAILY #90 caps 06/05/19 04/24/25 Rx release acyclovir 200 mg capsule 200 mg PO TID #30 caps 07/04/19 04/24/25 Rx cyclobenzaprine 10 mg tablet 10 mg PO TID 07/04/19 04/24/25 History lorcaserin 10 mg tablet (Belviq) 10 mg PO BID 07/04/19 04/24/25 History simvastatin 40 mg tablet 40 mg PO DAILY #90 tabs 07/18/19 04/24/25 Rx citalopram 20 mg tablet 20 mg PO DAILY #90 tabs 09/30/19 04/24/25 Rx levothyroxine 100 mcg tablet 100 mcg PO DAILY #90 tabs 10/23/19 04/24/25 Rx cetirizine 5 mg-pseudoephedrine ER 1 tablet PO DAILY 02/05/23 04/24/25 History 120 mg tablet,extended release,12hr (Zyrtec-D) tramadol 50 mg tablet 50 mg PO Q6H PRN pain #12 tabs 04/30/25 Rx Patient hx anesthesia problems: none Family hx anesthesia problems: none Results Review: All pre-operative results and documents have been reviewed as part of the pre-operative evaluation. 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 Hyperlipidemia Family History Family History Mother Hypertension Family history of diabetes mellitus in first degree relative Acute myocardial infarction Social History Social History Social History: Caffeine-soda Smoking status: Never smoker Alcohol intake: current Alcohol use details: weekends Substance use: never Substance use type: does not use Anes - Eval Final PreProcedure Day of Procedure 04/30/25 11:33 Patient weight: morbidly obese Lungs: clear to auscultation Airway: Mallampati scale class II Neurological: alert and oriented Last oral intake: >/= 8 hours ASA classification: III Emergent: no Anesthetic plan: proceed Anesthesia type and monitoring: general GIVS and standard monitoring Results Review: All pre-operative results and documents have been reviewed as part of the pre-operative evaluation. Informed Consent: The patient's anesthetic plan and its attendant risks and benefits were discussed with the patient/family/POA. Questions were solicited and answers provided to the satisfaction of the patient/family/POA.
[2025-04-30] MEDS: BUPivacaine HCL 0.5% 10 ML AMP INFILTRATE (11:44)
[2025-04-30] MEDS: ceFAZolin 2 GM in SODIUM CHLORIDE 0.9% IV 50 ML 100 ML IVPB (11:44)
[2025-04-30] MEDS: LIDO 1%/EPINEPHRINE 1:100,000 50 ML VIAL 10 ML INFILTRATE (11:44)
[2025-04-30 12:05] VITALS: BP 88/50; PULSE 86; RESP 20; O2SAT 92
[2025-04-30 12:30] VITALS: BP 112/76; PULSE 71; RESP 18; O2SAT 97
[2025-04-30 12:50] VITALS: BP 145/84; PULSE 70; RESP 18
== END 2025-04-30 13:03 | disposition home or self-care (01) ==
PROVIDERS: PCP Nurse Practitioner Family; Visit Provider Plastic Surgery
PROC: 01N54ZZ Release Median Nerve, Percutaneous Endoscopic Approach (ICD-10-PCS; CPT 29848; principal; 2025-04-30 11:30)
DX: G56.02 Carpal tunnel syndrome, left upper limb (principal); E55.9 Vitamin D deficiency, unspecified; E78.5 Hyperlipidemia, unspecified; E03.9 Hypothyroidism, unspecified; K21.9 Gastro-esophageal reflux disease without esophagitis; E66.01 Morbid (severe) obesity due to excess calories; Z68.41 Body mass index [BMI] 40.0-44.9, adult; Z79.891 Long term (current) use of opiate analgesic; Z79.899 Other long term (current) drug therapy; Z82.49 Family history of ischemic heart disease and other diseases of the circulatory system
CPT/HCPCS: 29848; J0690; A9270; J2003; J2004; J2250; J2704; J3010; J7120

== ENCOUNTER 2025-06-25 00:04 | Day surgery (SDC) | payer OTHER, BC, SELFPAY ==
[2025-06-17 12:30] VITALS: BMI 42.0
--- NOTE | 2025-06-17 12:40 | SUR.PREOP ---
[facility] has started construction of its new state of the art ER which will open Spring 2026. With this, we anticipate parking may be a challenge for some our surgical patients and families. Parking spaces are limited but are available for all Surgical, obstetrics, and ER patients sharing this lot. If you arrive and find you are having a hard time finding a parking space, please note that we understand the challenges, please drive around the hospital and park near Hospital Entrance 1. When you enter this entrance, you can ask a volunteer to direct or take you back to the surgical waiting area to check in. We appreciate everyone?s understanding of these expected challenges while we build for your future. Report to the Outpatient Waiting Room, entrance under the green pavilion located off [address], at time 0600 on date 06/25/25. Planned Procedure Time: 0730.? Time changes happen often and if your time is changed the preop area will call you the afternoon before. - You and your visitor will be asked to self-screen and do not enter if you have any COVID symptoms. Please call surgeon if you need to reschedule. - A mask is optional within the hospital at this time. Patients may have clear liquids (water, carbonated beverages, clear teas, apple juice) until 3 hours prior to surgery with a maximum of 20 ounces. - No food from 2300 until time of surgery and no smoking, or chewing tobacco (or any form of nicotine). No chewing gum, candy or mints. Take only the following medications with a SIP of water on the morning of surgery: citalopram, cyclobenzaprine, levothyroxine, and tramadol if needed DO NOT STOP ANY OF YOUR OTHER PRESCRIPTION MEDICATIONS PRIOR TO SURGERY EXCEPT THE FOLLOWING Hold all vitamins and supplements for 3 days per anesthesiologist. Medications to discontinue per physician N/A Date to take last dose N/A Please no make-up, nail somali, hairspray, perfume, deodorant, or body powder the day of surgery.? No jewelry (including any body piercings) or valuables the day of surgery, leave them at home.? Please take a shower or bath the night before, or the morning of, surgery with an antibacterial soap.? Wear comfortable, loose fitting clothing.? Children are encouraged to wear pajamas. - Jewelry must be removed prior to entering the operating room.? Rings and piercings that are not removed may be cut off. - The hospital will not accept responsibility for valuables.? - Please leave all valuables, including medications, at home the day of surgery. If you are going home after surgery, a licensed light truck driver must drive you home.? - NO public transportation without another adult if you receive anesthesia. - We recommend that an adult stay with you for 24 hours following discharge. - We also recommend that you do not drive, make important decision, drink alcoholic beverages, or take any drugs that were not prescribed by your health care provider for at least 24 hours after your discharge time. For Pediatric surgeries, we recommend two adults accompany the child home. Follow any additional instructions given to you from your surgeon. Telephone instructions given to IVONE SORTO and asked if any additional questions and then verbalized understanding. Patient advised to call surgeon office or pre surgery nurse liaison [phone] if any additional questions.
--- OUTSIDE RECORDS SUMMARY | 2025-06-25 00:20 | XMS_ITS | Encounter Summary ---
Author Organization [facility] Address [facility] [place] [address] Care Team Providers Care Bell Spinner Name Role Phone Marilia Contreras Primary Care Provider [phone] Encounter Details Date Type Department Care Team (Latest Contact Info) Description 07/26/2021 RDA Microelectronicst Message Enc [facility] Medical Group Family & Internal Medicine [facility] [address] [place] [address] Marilia Contreras APNP [address] [place], [place] [phone] Prescription for a head cold Social History [...] documented as of this encounter Care Teams Bell Spinner Relationship Specialty Start Date End Date Marilia Contreras APNP [address] [place] [phone] PCP - General NURSE PRACTITIONER 04/15/20 documented as of this encounter
--- OUTSIDE RECORDS SUMMARY | 2025-06-25 00:20 | XMS_ITS | Encounter Summary ---
Author Organization [facility] Address [facility] [place] [address] Care Team Providers Care Testing Engineer Name Role Phone Marilia Contreras Primary Care Provider [phone] Encounter Details Date Type Department Care Team (Late st Contact Info) Description 10/06/2020 Torrentialt Message Enc [facility] Medical Group Family & Internal Medicine [facility] [address] [place] [address] Marilia Contreras APNP [address] [place] [address] RE: Medication Questions Social History [...] partial remission Asthma due to seasonal allergies ([facility]) documented in this encounter Additional Health Concerns Assessment Noted Time PHQ-9 Depression Total Score: 7 04/15/20 20 8:40 AM CDT documented as of this encounter Care Teams Testing Engineer Relationship Specialty Start Date End Date Marilia Contreras APNP [address] [place] [address] PCP - General NURSE PRACTITIONER 04/15/20 documented as of this encounter
--- OUTSIDE RECORDS SUMMARY | 2025-06-25 00:20 | XMS_ITS | Encounter Summary ---
Author Organization [facility] Address [facility] [place] [address] Care Team Providers Care Clinical Services Professional Name Role Phone Marilia Contreras Primary Care Provider [phone] Encounter Details Date Type Department Care Team (Late st Contact Info) Description 05/11/2020 Software Technologyt Message Enc [facility] Medical Group Family & Internal Medicine [facility] [address] [place] [address] Marilia Contreras APNP [address] [place] [address] RE: medications Social History Tobacco [...] Diagnoses Diagnosis Asthma due to seasonal allergies ([facility])- Primary documented in this encounter Additional Health Concerns Assessment Noted Time PHQ-9 Depression Total Score: 7 04/15/20 20 8:40 AM CDT documented as of this encounter Care Teams Clinical Services Professional Relationship Specialty Start Date End Date Marilia Contreras APNP [address] [place] [address] PCP - General NURSE PRACTITIONER 04/15/20 documented as of this encounter
--- OUTSIDE RECORDS SUMMARY | 2025-06-25 00:20 | XMS_ITS | Encounter Summary ---
Author Organization [facility] Address [facility] [place] [address] Care Team Providers Care Telephone Maintainer Name Role Phone Marilia Contreras Primary Care Provider [phone] Encounter Details Date Type Department Care Team (Late st Contact Info) Description 12/10/2021 SpotterRFt Message Enc [facility] Medical Group Family & Internal Medicine [facility] [address] [place] [address] Marilia Contreras APNP [address] [place] [address] Refill Social History Tobacco Use [...] documented as of this encounter Care Teams Telephone Maintainer Relationship Specialty Start Date End Date Marilia Contreras APNP [address] [place] [address] PCP - General NURSE PRACTITIONER 04/15/20 documented as of this encounter
--- OUTSIDE RECORDS SUMMARY | 2025-06-25 00:20 | XMS_ITS | Encounter Summary ---
Author Organization [facility] Address [facility] [place] [address] Care Team Providers Care Tree Farmer Name Role Phone Marilia Contreras Primary Care Provider [phone] Encounter Details Date Type Department Care Team (Late st Contact Info) Description 09/21/2020 [employer]als[employer]t Message Enc [facility] Medical Group Family & Internal Medicine [facility] [address] [place] [address] Marilia Contreras APNP [address] [place], [place] [phone] RE: Medication Questions Social History Tobacco Use [...] documented as of this encounter Care Teams Tree Farmer Relationship Specialty Start Date End Date Marilia Contreras APNP [address] [place] [phone] PCP - General NURSE PRACTITIONER 04/15/20 documented as of this encounter
--- OUTSIDE RECORDS SUMMARY | 2025-06-25 00:21 | XMS_ITS | Clinical Summary ---
Author Organization [facility] [address] [facility] Address [address] [place] [address] Care Team Providers Care Emergency Management Coordinator Name Role Phone Shobha Hunt NP Primary Care Provider [phone] Allergies No known active allergies Medications ZyrTEC-D [...] 05/26/2023 Assessment & Plan (08/05/2024 2:41 PM PIG FURNACE OPERATOR): Discussed the patient's BMI. The BMI [...] on file Legal Sex Female 12:04 AM PIG FURNACE OPERATOR Gender Identity Not on file Sexual [...] NP IMG MAMMO PROCEDURES Final Re sult * Pap and HPV, reflex to HPV Genotypes (05/26/2023 3:56 PM CDT) CLINICAL INFORMATION: [facility] Comment:Postmenopausal LMP [facility] Comment:COURTNEY Previous Pap [facility] Comment:PREV NEG Prev. Bx [facility] [employer] [facility] Comment:None given SOURCE: [facility] Comment:Cervix, Endocervix Pap, specimen adequacy [facility] Comment: Satisfactory for evaluation. Endocervical/transformation zone component present. HPV interp [facility] [employer] [facility] Comment: Cytology Results: Negative for intraepithelial lesion or malignancy. Carousel Attendant [facility] [employer] [facility] Comment: MMD, CT(ASCP) CT Screening Location: [place] [address] Comment [facility] Comment: EXPLANATORY NOTE: The Pap is [...] Client Letter) showing TIS test codes, see www.[employer]/Resources, and navigate to [employer]>Physician Materials>TIS Client Letter. You can also call for test code assistance. Human papillomavirus DNA, High Risk E6/E7 Not Detected NOT DETECTED [facility] /Dede Johnson [facility] Comment: Not Detected High Risk HPV types (16,18,31,33,35,39,45,51,52, 56,58,59,66,68) were not detected. Other HPV types which cause anogenital lesions may be present. The significance of the other types of HPV in malignant processes has not been established. Methodology: Real Time PCR Thin prep 05/26/2023 3:56 PM CDT 05/27/2023 5:15 AM CDT Shobha Hunt [facility] NURSE LAB CYTOLOGY ORDERABLES Final [facility] [address] [place] [address] Inductly [facility] [address] [place] [address] * COLONOSCOPY (03/08/2023 7:59 AM CDT) Anatomical Region Laterality Modality Other Narrative Procedure Note Woodrow Gregory MD - 03/08/2023 7:59 AM CDT [facility] GI ENDOSCOPY Patient Name: Patito Allison Procedure Date: 03/08/2023 7:59 AM Date of : 1970 Admit Type: Outpatient Age: 52 Gender: Female Attending MD: Woodrow Gregory M.D. Room: [facility] ENDOSCOPY ROOM 06 Note Status: Finalized Procedure: [...] The scope was passed under direct vision.The [id number]-[id number] colonoscope was introduced through theanus and advanced [...] On: 03/08/2023 7:59 AM Recognized by the [employer] for promoting quality in endoscopy Woodrow Gregory MD ENDOSCOPY PROCEDURES Final Resul t from Last 3 Months or Most Recently Relevant to Health Maintenance Insurance [facility] HMO/PPO Address: [facility] [address] [place] [address] [employer] CHOICE [facility] CHOICE [employer]US [facility] HMO/PPO Address: [address] [address] [place] [address] Care Teams Emergency Management Coordinator Relationship Specialty Start Date End Date Shobha Hunt NP [address] [facility] [address] [place] [address] PCP - General Internal Medicine 11/24/22
[2025-06-25 06:00] VITALS: BP 137/74; PULSE 86; RESP 18; TEMP 36.3; O2SAT 98
[2025-06-25] MEDS: ACETAMINOPHEN 500 MG TABLET 1000 MG PO (06:13)
[2025-06-25] MEDS: LACTATED RINGERS 1,000 ML 30 ML IV CONT (06:15)
--- NOTE | 2025-06-25 06:37 | WPDHPUPDATE1 ---
History and Physical Update Update Date/Time: 06/25/25 06:37 Patient seen and examined in pre-operative holding area. No interval change in medical history or symptoms. Patient recalls previous discussion of benefits and alternatives to procedure. Continues to desire to proceed with right endoscopic possible open carpal tunnel release . Reviewed procedure, post-op expectations and risks including but not limited to bleeding, infection, injury to tendon/nerve/vessel, decreased hand function, stiffness, RSD, no change or worsening of symptoms. I discussed the possible use of assistants and their participation in the case. Patient stated understanding and signed the consent form wishing to proceed.
--- NOTE | 2025-06-25 06:37 | W.PM.PROC2 ---
Procedure Note - Detailed Date of Procedure 06/25/25 Pre-op Diagnosis Christiano Carpal Tunnel synd Post-op Diagnosis Same Procedure Performed right ectr Surgeon Jair Fajardo MD Agency Sales Representative Kira sharpe pa-c Anesthesia MAC Description of Procedure INFORMED CONSENT: The patient was seen and examined and marked in the pre-op area.? The patient signed the consent form. PROCEDURE IN DETAIL:The patient taken back to OR on the stretcher in supine position. Time out performed with anesthesia, surgeon and staff agreeing on patient's name site and surgery to be performed SCDs were placed on the lower extremities and inflated. A tourniquet was placed on {right} upper extremity and antibiotics given IV After anesthesia administered sedation I injected {5}cc 1%lido with epi and 0.5% marcaine plain at the operative site The?{right upper extremity}?was prepped and draped in sterile fashion the??{right upper extremity} was? exsanguinated with Esmarch bandage and tourniquet inflated to 250mmHg I made a transverse incision in the {right} volar distal wrist crease through skin and dermis with 15 blade scalpel.? Littler scissors spread down to antebrachial fascia. A small incision was made in antebrachial fascia allowing access to Carpal tunnel. I proceeded with sequential dilation staying in line with the ring finger and hugging the hook of the hamate.? I then used the synovial elevator to free any adhesions from the underside of the transverse carpal ligament. Next I was able to insert the Microaire endoscopic carpal tunnel device with direct visualization of the transverse fibers on the monitor and proceeded with complete segmental retrograde release of the ligament in its entirety.? I irrigated with normal saline and closed with 4-0 monocryl for dermis and subcuticular closure. A dressing of Dermabond, 4x4, dejuan, and a volar splint was applied for patient safety, security, and comfort and secured with an nilda bandage after the tourniquet was let down noting the hand was warm and well perfused. The patient was then awaken from anesthesia and transferred to the recovery room in stable condition.? Complications - none EBL- 0cc Disposition - home in stable condition Kira Sharpe PA-C was essential for positioning, retraction, closure and dressing placement. [facility] Billing Surgery - Charge Forward: Surgery Billing ([id number] for kira)
--- NOTE | 2025-06-25 07:09 | P.PNAN_ITS ---
Anes - Initial Pre Proc Eval Procedure: Operation Date: 06/25/25 07:30 Proposed Procedures p Right Endoscopic Carpal Tunnel Release, Possible Open - Jair Fajardo MD Date/Time: 06/25/25 07:09 Surgeon: Jair Fajardo MD Pre Op Diagnosis: Christiano Carpal Tunnel synd Patient Data Age: 55 Gender: F Height: 1.57 m Weight: 102.9 kg Last Vital Signs Temp 36.3 C L 06/25/25 06:00 Pulse 86 06/25/25 06:00 Resp 18 06/25/25 06:00 BP 137/74 06/25/25 06:00 Pulse Ox 98 06/25/25 06:00 O2 Del Method Room Air 06/25/25 06:00 Allergies Allergy/AdvReac Type Severity Reaction Status Date / Time No Known Allergies Allergy Verified 06/25/25 06:02 Home Medications ?Medication ?Instructions ?Recorded ?Confirmed ?Type omeprazole 20 mg capsule,delayed 20 mg PO DAILY #90 ca ps 06/05/19 06/25/25 Rx release acyclovir 200 mg capsule 200 mg PO TID #30 caps 07/0406/25/25 Rx cyclobenzaprine 10 mg tablet 10 mg PO TID 07/04/19 History simvastatin 40 mg tablet 40 mg PO DAILY #90 tabs 06/2406/25/25 Rx citalopram 20 mg tablet 20 mg PO DAILY #90 tabs 0304/1206/25/25 Rx levothyroxine 100 mcg tablet 100 mcg PO DAILY #90 tabs 10/23/19 06/25/25 Rx cetirizine 5 mg-pseudoephedrine ER 1 tablet PO DAILY 0 02/05/23 06/25/25 History 120 mg tablet,extended release,12hr (Zyrtec-D) tramadol 50 mg tablet 50 mg PO Q6H PRN pain #12 ta bs 04/30/25 06/17/25 Rx Patient hx anesthesia problems: none Family hx anesthesia problems: none Results Review: All pre-operative results and documents have been reviewed as part of the pre- operative evaluation. [facility] Past Medical History Medical History Neck fullness Vitamin D deficiency Colon cancer screening BMI 38.0-38.9,adult Recurrent cold sores Encounter for preventive health examination Hypothyroidism (acquired) GERD (gastroesophageal reflux disease) [facility] drug therapy Hyperlipidemia Family History Family History Mother Hypertension Family history of diabetes mellitus in first degree relative Acute myocardial infarction Social History Social History Social History: Caffeine-soda Smoking status: Never smoker Alcohol intake: current Drinks per week: 4 Alcohol use details: weekends Substance use: never Substance use type: does not use Living arrangements: with family Spiritual care concerns: No Anes - Eval Final PreProcedure Day of Procedure 06/25/25 07:09 Patient weight: morbidly obese Heart: regular rate and rhythm Lungs: clear to auscultation Airway: Mallampati scale class II Neurological: alert and oriented Last oral intake: >/= 8 hours ASA classification: III Emergent: no Anesthetic plan: proceed Anesthesia type and monitoring: general GIVS and standard monitoring Results Review: All pre-operative results and documents have been reviewed as part of the pre- operative evaluation. Informed Consent: The patient's anesthetic plan and its attendant risks and benefits were discussed with the patient/family/POA. Questions were solicited and answers pro vided to the satisfaction of the patient/family/POA.
[2025-06-25] MEDS: ceFAZolin 2 GM in SODIUM CHLORIDE 0.9% IV 50 ML 100 ML IVPB (07:36)
[2025-06-25] MEDS: LIDO 1%/EPINEPHRINE 1:100,000 50 ML VIAL (07:37)
[2025-06-25] MEDS: BUPivacaine HCL 0.5% 10 ML AMP INFILTRATE (07:38)
[2025-06-25 07:48] VITALS: BP 101/47; PULSE 87; RESP 14; O2SAT 99
[2025-06-25 08:00] VITALS: BP 126/70; PULSE 87; RESP 20; O2SAT 96
[2025-06-25 08:30] VITALS: BP 108/64; PULSE 78
[2025-06-25 09:00] VITALS: BP 108/64; PULSE 78
== END 2025-06-25 09:10 | disposition home or self-care (01) ==
PROVIDERS: PCP Nurse Practitioner Family; Visit Provider Plastic Surgery
PROC: 01N54ZZ Release Median Nerve, Percutaneous Endoscopic Approach (ICD-10-PCS; CPT 29848; principal; 2025-06-25 07:30)
DX: G56.01 Carpal tunnel syndrome, right upper limb (principal); E66.01 Morbid (severe) obesity due to excess calories; Z68.41 Body mass index [BMI] 40.0-44.9, adult
CPT/HCPCS: 29848; J0690; A9270; J2004; J2250; J2270; J2704; J7120